=== PATIENT | female | born 1960 | race African-American/Black ===

== ENCOUNTER 2020-10-23 10:40 | Emergency (ER) | payer BC ==
[2020-10-23 10:54] VITALS: TEMP 97.9; BMI 22.6
[2020-10-23] MEDS ORDERED: SODIUM CHLORIDE 0.9% 500 ML INFUS.BAG IV ONE (12:16)
[2020-10-23 12:39] LABS: BASO % 0.7 % (0-2.0); EOS % 1.9 % (0-4.5); HEMATOCRIT 41.4 % (32.4-45.2); HEMOGLOBIN 13.7 GM/dL (10.7-15.3); LYMPH % 33.1 % (8-40); MCH 28.2 pg (25.7-33.7); MCHC 32.9 g/dl (32.0-36.0); MEAN CELL VOLUME 85.4 fl (80-96); MEAN PLT VOLUME 8.4 fl (7.5-11.1); MONO % 7.7 % (3.8-10.2); NEUT % 56.6 % (42.8-82.8); PLATELET COUNT 252 K/MM3 (134-434); RBC 4.85 M/mm3 (3.60-5.2); RDW 14.1 % (11.6-15.6); URINE APPEARANCE CLEAR; URINE BILIRUBIN NEGATIVE (NEGATIVE); URINE COLOR YELLOW; URINE GLUCOSE (UA) NEGATIVE (NEGATIVE); URINE KETONE NEGATIVE (NEGATIVE); URINE LEUK ESTERASE NEGATIVE (NEGATIVE); URINE NITRITE NEGATIVE (NEGATIVE); URINE PROTEIN NEGATIVE (NEGATIVE); URINE UROBILINOGEN 0.2 mg/dL (0.2-1.0); WHITE BLOOD COUNT 4.7 K/mm3 (4.0-10.0)
[2020-10-23 13:06] LABS: CHLORIDE 106 mmol/L (98-107); POTASSIUM 4.2 mmol/L (3.5-5.1); SODIUM 140 mmol/L (136-145)
[2020-10-23 13:08] LABS: CALCIUM 9.5 mg/dL (8.5-10.1)
[2020-10-23 13:09] LABS: ALBUMIN 4.4 g/dl (3.4-5.0); ANION GAP 7 MMOL/L (8-16); BLOOD UREA NITROGEN 14.7 mg/dL (7-18); CO2 26 mmol/L (21-32); GLUCOSE,RANDOM 93 mg/dL (74-106); MAGNESIUM 2.4 mg/dL (1.8-2.4)
[2020-10-23 13:12] LABS: PHOSPHOROUS 3.7 mg/dL (2.5-4.9); SGOT/AST 23 U/L (15-37); SGPT/ALT 39 U/L (13-61)
[2020-10-23 13:13] LABS: BILIRUBIN,TOTAL 0.3 mg/dL (0.2-1); TOT PROT 8.3 g/dl (6.4-8.2)
[2020-10-23 13:15] LABS: ALK PHOS 120 U/L (45-117)
[2020-10-23 14:09] VITALS: BP 131/88; PULSE 81
== END 2020-10-23 17:07 | disposition home or self-care (01) ==
LOC: JER 10:40
DX: R00.2 Palpitations (principal)
CPT/HCPCS: 36415; 71046-TC-FY; 80053; 81003; 82550; 83735; 84100; 84443; 84484; 85025; 87086; 93005; 93010; 93308; 99285-25